=== PATIENT | male | born 1960 | race Caucasian/White ===

== ENCOUNTER 2019-08-22 10:07 | Emergency (ER) | payer OTHER ==
[~2019-08-22] VITALS: Ht 160 cm; Wt 86.2 kg
[~2019-08-22 10:07] MED LIST: AMIT10TA6 PO; ASPI-605 PO; CHOL50004 PO; CYAN500T65 PO; FOLI1TAB16 PO; LEVO175T7 PO; LEVO500T90 PO; OMEP20CA15 PO; PRAV20TA4 PO; PYRI-6 PO; PYRI100T18 PO; RANI-563 PO; SENN1TAB6 PO
[2019-08-22 10:13] VITALS: BP 121/82
--- NOTE | 2019-08-22 11:05 | NUR ---
PT CAME INTO THE ED C/O L WRIST PAIN SINCE 08/01/20. DENIES TRAUMA. PT AAOX4, VSS, BREATHING EVEN AND UNLABORED ON ROOM AIR W/ NAD NOTED. AWAITING FOR MD CHRISTIANSON
--- NOTE | 2019-08-22 11:53 | NUR ---
Patient discharged to home in stable condition. Written and verbal after care instructions given. Patient verbalizes understanding of instruction.
== END 2019-08-22 12:02 | disposition home or self-care (01) ==
LOC: ER 10:11
DX: S63.592A Other specified sprain of left wrist, initial encounter (principal); E03.9 Hypothyroidism, unspecified; E78.00 Pure hypercholesterolemia, unspecified; F17.200 Nicotine dependence, unspecified, uncomplicated; Z98.890 Other specified postprocedural states; Z79.899 Other long term (current) drug therapy; Z79.82 Long term (current) use of aspirin; X58.XXXA Exposure to other specified factors, initial encounter; Y93.89 Activity, other specified; Y92.89 Other specified places as the place of occurrence of the external cause; Y99.8 Other external cause status
CPT/HCPCS: 73130-TC

== ENCOUNTER 2023-04-15 13:42 | Emergency (ER) | payer OTHER ==
[~2023-04-15] VITALS: Ht 160 cm; Wt 86.2 kg
[~2023-04-15 13:42] MED LIST changes: +CYAN500T64 PO; -CYAN500T65 PO
[2023-04-15] MEDS ORDERED: ACETAMINOPHEN 325 MG TABLET PO ONE (16:00)
[2023-04-15] MEDS ORDERED: ACETAMINOPHEN 325 MG TABLET ONE (16:14)
[2023-04-15] MEDS ORDERED: FAMO-131 PO (16:56)
[2023-04-15] MEDS ORDERED: NAPR-1009 PO (18:00)
[2023-04-15] MEDS ORDERED: FAMO20TA8 PO (18:00)
[2023-04-15 18:10] VITALS: BP 109/63; TEMP 97.7; O2SAT 100
== END 2023-04-15 18:11 | disposition home or self-care (01) ==
LOC: ER 13:42
DX: S82.61XA Displaced fracture of lateral malleolus of right fibula, initial encounter for closed fracture (principal); E03.9 Hypothyroidism, unspecified; E78.00 Pure hypercholesterolemia, unspecified; F17.200 Nicotine dependence, unspecified, uncomplicated; Z79.82 Long term (current) use of aspirin; Z79.899 Other long term (current) drug therapy; Z98.890 Other specified postprocedural states; W19.XXXA Unspecified fall, initial encounter; Y93.89 Activity, other specified; Y92.89 Other specified places as the place of occurrence of the external cause; Y99.8 Other external cause status
CPT/HCPCS: 73564-TC; 73610-TC; 73630-TC